=== PATIENT | male | born 1975 | race Two or more races ===

== ENCOUNTER 2018-04-05 08:05 | Outpatient (CLI) | payer OTHER | END 2018-04-05 23:59 | disposition home or self-care (01) | LOC: WOU 08:05 | PROVIDERS: ATTEND Podiatrist Foot & Ankle Surgery | DX: M65.871 Other synovitis and tenosynovitis, right ankle and foot (principal); G58.8 Other specified mononeuropathies; M21.42 Flat foot [pes planus] (acquired), left foot; M21.41 Flat foot [pes planus] (acquired), right foot | CPT/HCPCS: 99215; Z7610; G0463 ==